=== PATIENT | female | born 1990 | race Caucasian/White ===

== ENCOUNTER 2016-06-09 13:17 | Observation (INO) ==
[2016-06-09 14:25] LABS: Protein/Creatinine Ratio,Urine 0.18 mg/mg (0-0.20)
--- NOTE | 2016-06-09 14:25 | OB/GYN Progress Note ---
Date of Encounter: 06/10/16 Time of Encounter: 14:19 - Assessment and Plan (1) Elevated blood pressure affecting in second trimester, antepartum Status: Acute -Patient is currently asymptomatic. -HTN in previous preganacny. No history of preeclampsia or seizures -Patient drinks 3 20oz bottles of water a day, only. -Differential:preeclampsia vs HTN induced Plan -Preeclampsia workup and check liver enzymes -If negative, patient would like to be discharged home -Consider starting low dose labetalol till f/u with OBGYN -Her mother lives across the street and can watch over her Subjective - Subjective Principal diagnosis: hyptertension, 22w Interval history: 25F, , LMP 01/04/16, c/c headache and R eye blurry vision. This afternoon , patient was taking a shower, stat down and started to have a headache and R eye blurry vision. Headache frontal and temporal, pressure like sensation. Blurry vision described as "stars, and blurry streaks". Lasted 25min. She took her BP and showed 160/90's. She went to the urgent care where they took her BP and was elevated. She was then sent to [place] for evaluation. Currently, patient is asymptomatic and has no complaints. Repeat BP 130's/60's. She has had an issue with HTN during her last , not preeclampsia. Currently, she takes no medication, denies smoking, drinking, drug use. No history of seizures. Her OBGYN is Dr. Shafer. Father is involved, is not moved in. Her mother lives across the street from her and is able to monitor her. If workup is negative, patient does feel comfortable going home. Antepartum ROS: movement normal, no loss of fluid, no vaginal bleeding, no contractions Objective - Vital Signs Vital Signs: Intake and Output 06/08/16 06/09/16 06/09/16 23:59 07:59 15:59 Other: Weight 95.3 kg Patient Weight 06/09/16 23:59 Weight 95.3 kg - Exam FHR: auscultation normal Auscultation: bilateral: normal Abdomen: Present: normal appearance, soft, gravid Uterus: Present: normal, firm Comments: Patellar and achillies DTR +2/4. Visual field intact.
[2016-06-09 14:32] LABS: Aspartate Amino Transferase 11 Units/L (5-34); BUN/Creatinine Ratio 9 (6-26); Lactate Dehydrogenase 116 Units/L (159-327); Uric Acid 3.8 mg/dL (2.6-6.0); eGFR For African Americans > 60 (> 60); eGFR For Non-African Americans > 60 (> 60)
[2016-06-09 14:35] LABS: Alanine Aminotransferase < 6 Units/L (0-55); Blood Urea Nitrogen 5 mg/dL (7-20)
[2016-06-09 14:48] LABS: Basophils % 0.3 %; Eosinophils # 0.1 K/mcL (0.0-0.6); Eosinophils % 0.6 %; Hematocrit 33.7 % (35.3-44.9); Hemoglobin 11.3 g/dL (11.5-15.4); Immature Granulocytes % 0.8 % (0-4); Immature Platelets 8.4 % (1.1-6.1); Lymphocytes # 1.8 K/mcL (0.6-4.6); Lymphocytes % 14.1 %; Mean Corpuscular HGB Conc 33.5 g/dL (31.6-35.5); Mean Corpuscular Hemoglobin 29.4 pg (28.0-33.3); Mean Corpuscular Volume 87.5 fL (83.0-100.0); Mean Platelet Volume 11.4 fL (9.4-12.4); Monocytes # 0.7 K/mcL (0.0-1.3); Monocytes % 5.9 %; Neutrophils # 9.7 K/mcL (1.6-8.9); Platelet Count 268 K/mcL (140-400); Red Blood Count 3.85 M/mcL (3.82-4.97); Red Cell Distribution Width 12.8 % (11.5-14.5); Segmented Neutrophils % 78.3 %
== END 2016-06-09 17:35 | disposition home or self-care (01) ==
LOC: 1NENULAB
PROVIDERS: ADMIT Student in an Organized Health Care Education/Training Program; ATTEND Student in an Organized Health Care Education/Training Program

== ENCOUNTER → 2016-09-16 16:30 | Observation (INO) ==
--- NOTE | 2016-09-16 15:40 | OB/GYN Progress Note ---
Date of Encounter: 09/16/16 Time of Encounter: 15:34 - Assessment and Plan (1) 37 weeks gestation of Current Visit: Yes Status: Acute admitted for observation (2) Fall Current Visit: Yes Status: Acute extended monitoring. Qualifiers: Encounter type: initial encounter Qualified Code(s): W19.XXXA - Unspecified fall, initial encounter (3) NST (non-stress test) reactive Current Visit: Yes Status: Acute baseline 135 bpm moderate variability +15x15 accels no decels noted. Subjective - Subjective Principal diagnosis: fall Interval history: Patient is 25 y/o at 37 weeks gestational age presents to labor and delivery after falling around 1330. Patient states she was bent over putting something in a cabinet and when she stood up she got lightheaded and passed out. Patient states her left side hit a tall trash can and she slid down landing on her bottom. Patient states she did not hit her head or abdomen but when she came to she was shaky. Patient denies contractions, VB or LOF. Patient states until she was on the monitor she did not feel baby move. Patient is scheduled to have 3 hour gtt tomorrow. Blood type is O+. No bruising noted on exam. Antepartum ROS: no loss of fluid, no vaginal bleeding, no contractions Objective - Vital Signs Vital Signs: Intake and Output 09/15/16 09/16/16 09/16/16 23:59 07:59 15:59 Other: Weight 100.5 kg Patient Weight 09/16/16 23:59 Weight 100.5 kg - Exam FHR: auscultation normal, category 1 FHR comments: 135 bpm moderate variability +15x15 accels no decels noted. No contractions. CAt. 1 tracing. Auscultation: bilateral: normal Abdomen: Present: normal appearance, soft, gravid Uterus: Present: normal, firm
--- NOTE | 2016-09-16 16:12 | Discharge Summary ---
Date of Encounter: 09/16/16 Time of Encounter: 16:11 - Discharge Diagnosis (1) 37 weeks gestation of Priority: Primary Status: Acute Comments: discharge home,follow up as scheduled Discussed patient with DR. Wynn. (2) Fall Priority: Secondary Status: Acute Comments: RNST Qualifiers: Encounter type: initial encounter Qualified Code(s): W19.XXXA - Unspecified fall, initial encounter (3) NST (non-stress test) reactive Priority: Secondary Status: Acute Comments: RNST - Discharge Medications Home Medications: Vit Calc,Iron,Folic [ Vitamins] 1 tab PO DAILY 06/09/16 [ History] Allergies/Adverse Reactions: Allergies No Known Allergies Allergy (Verified 06/09/16 12:22) Data Procedures and tests throughout hospitalization: Laboratory Tests 09/16/16 14:56 POC Glucose 85 Labs on day of discharge: Labs from last 24 hours 09/16/16 14:56 POC Glucose 85 Date of admission: 09/16/16 14:26 Primary care physician: PCP NO Discharging clinician: Bárbara Hodge Anticipated date of discharge: 09/16/16 - Patient Status Disposition: Home, Self-Care Condition: Good Functional capacity at discharge: independent ambulation - Discharge Instructions Follow Up With: NO,PCP [Primary Care Provider] - Alfredo Wynn MD [Partnered Physician] - - Diet and Activity Activity: increase activity as tolerated Diet: regular diet Hospital Course [employer] Time Attestation: Total time spent providing and/or coordinating discharge services: Time Spent: Less than 30 minutes Exam - Constitutional General appearance IM: A&O X 3, pleasant, no acute distress - Respiratory Respiratory exam: Present: CTAB - Cardiovascular Cardiovascular exam IM: Present: RRR, +S1, +S2 - VTE Reasons for not Prescribing Prophylaxis: Treatment not Indicated - Low risk for VTE
== END | disposition home or self-care (01) ==
LOC: 1NENULAB
PROVIDERS: ADMIT Obstetrics & Gynecology; ATTEND Obstetrics & Gynecology

== ENCOUNTER 2016-09-29 05:40 | Inpatient (IN) ==
[2016-09-29] MEDS ORDERED: Ringers Solution, Lactated 1,000 ML IVC ONE (05:48)
[2016-09-29] MEDS ORDERED: Famotidine 20 MG/2 ML VIAL IVP PRN (05:48)
[2016-09-29] MEDS ORDERED: Metoclopramide 10 MG/2 ML VIAL IVP ONE (05:48)
[2016-09-29] MEDS ORDERED: Naloxone 0.4 MG/ML INJ IVP PRN (05:48)
[2016-09-29 06:34] LABS: Basophils % 0.3 %; Eosinophils # 0.1 K/mcL (0.0-0.6); Eosinophils % 1.2 %; Hematocrit 32.8 % (35.3-44.9); Hemoglobin 10.7 g/dL (11.5-15.4); Lymphocytes # 1.9 K/mcL (0.6-4.6); Lymphocytes % 16.4 %; Mean Corpuscular HGB Conc 32.6 g/dL (31.6-35.5); Mean Corpuscular Hemoglobin 27.6 pg (28.0-33.3); Mean Corpuscular Volume 84.8 fL (83.0-100.0); Mean Platelet Volume 11.5 fL (9.4-12.4); Monocytes % 8.2 %; Neutrophils # 8.5 K/mcL (1.6-8.9); Platelet Count 220 K/mcL (140-400); Red Blood Count 3.87 M/mcL (3.82-4.97); Red Cell Distribution Width 13.3 % (11.5-14.5); Segmented Neutrophils % 72.9 %
[2016-09-29] MEDS ORDERED: Ringers Solution, Lactated 1,000 ML IVC SCH (07:00)
[2016-09-29] MEDS ORDERED: CeFAZolin Pre 2,000 MG/100 ML 2,000 MG/100 ML BAG IVPB ONE (07:15)
--- NOTE | 2016-09-29 07:49 | OB/GYN History & Physical ---
Date of Encounter: 09/29/16 Time of Encounter: 07:45 Assessment and Plan (1) 39 weeks gestation of Current visit: Yes Status: Acute Pt presents for repeat . Questions answered and consent obtained. Will repeat . History of Present Illness Chief complaint: Here for repeat HPI: Ms. Moreno is a 26 year old female female with h/o x 2 presents at 39 weeks EGA presents for repeat . She has h/o htn but bp's have been good throughout this . On arrival she has no c/o. +GFM, no vb or lof. Past Med Surg Social Fam HX - Past Medical History Source: patient, old records reviewed Medical history: no medical history Psychiatric history: anxiety - Past Surgical History Surgical History: - Social History Smoking Status: Never smoker Smokeless Tobacco Status: No Alcohol use: none Drug use: none - Family History Mother Age: 55 Family Member Ethnicity: Non- Living Status: Still Living Hx Family Cardiac Disorders: No Hx Family Respiratory Disorders: No Hx Family Cancer: No Hx Family GI Disorders: No Hx Family Endocrine Disorder: No Hx Family Neuromuscular Disorders: No Hx Family Neurologic Disorders: No Hx Family HEENT Disorders: No Hx Family Autoimmune Disorders: No Obstetrical History - Pregnancies : 4 Para: 2 (H/O prior c section) Medications and Allergies Vit Calc,Iron,Folic [ Vitamins] 1 tab PO DAILY 06/09/16 [ History] Allergies No Known Allergies Allergy (Verified 09/29/16 07:09) Exam - Vital Signs Vital signs: Initial Vital Signs Temp Pulse Resp BP 98.0 F 117 20 134/78 09/29/16 06:08 09/29/16 06:08 09/29/16 06:08 09/29/16 06:08 - Constitutional Constitutional: well developed, well nourished, no acute distress - HEENT HEENT: EOMI, PERRL - Neck Neck exam: full ROM - Lungs Respiratory exam: CTAB - Cardiovascular Cardiovascular exam: RRR - Abdomen Abdomen: Present: gravid, non tender - Extremities Extremities exam: full ROM Deep Tendon Reflex Grade: 2+ Normal Results Result Diagrams: 09/29/16 06:25 Abnormal lab results WBC 11.7 K/mcL (4.3-11.1) H 09/29/16 06:25 Hgb 10.7 g/dL (11.5-15.4) L 09/29/16 06:25 Hct 32.8 % (35.3-44.9) L 09/29/16 06:25 MCH 27.6 pg (28.0-33.3) L 09/29/16 06:25 All other labs normal.
--- NOTE | 2016-09-29 07:51 | Anesthesia Evaluation PreOp ---
Date of Encounter: 09/29/16 Time of Encounter: 07:48 - Past History Planned Operation: C-S (repeat) tubal Cardiac History: HTN (-induced htn) Pulmonary History: Denies Any Significant HX [employer] History: Denies Any Significant HX Other Medical History: Denies Any Significant HX Anesthesia History: No Prior Anesthetic Complications, Past Anesthesia (C-S x 2 (epidural, spinal); never underwent general anesthesia) Alcohol Use: none Drug use: none Medications and Allergies Vit Calc,Iron,Folic [ Vitamins] 1 tab PO DAILY 06/09/16 [ History] Allergies No Known Allergies Allergy (Verified 09/29/16 07:09) - Meds/Allergy Pre-op Review Medications Reviewed: Yes Allergies Reviewed: Yes Beta Blockers on Current Med List: No Anesthesia Results - Labs 09/29/16 06:25 Anesthesia Exam Last Vital Signs Temp 98.0 F 09/29/16 06:08 Pulse 117 09/29/16 06:08 Resp 20 09/29/16 06:08 BP 134/78 09/29/16 06:08 Weight: 102 kg NPO (# of Hours): >> 8 hrs - HEENT Pupil (Motor): Pupils equal, EOMI Mallampati: I Teeth: Normal Oral Opening: Greater than 3 - [employer] LOC: Oriented [employer] Motor: Normal RUE, Normal LUE, Normal RLE, Normal LLE, Normal Face - Cardiac Rhythm: Regular Murmur: None - Pulmonary Breath Sounds: bilateral Clear Respiratory Effort: Symmetrical Anesthesia Assess/Plan ASA Score: 2 Modified [place] Scale for Level of Consciousness: Cooperative, oriented, and tranquil Anesthetic Plan: Regional (spinal plan A) Monitoring Plan: Standard Monitors Recovery Plan: PACU
[2016-09-29] MEDS ORDERED: Water for inj. (sterile) 10 ML IV ONE (08:51)
[2016-09-29] MEDS ORDERED: EPHEDrine 50 MG/ML VIAL ONE (08:51)
[2016-09-29] MEDS ORDERED: *HR* FentaNYL (PF) 100 MCG/2 ML VIAL ONE (08:51)
[2016-09-29] MEDS ORDERED: *HR* Morphine Sulfate/PF 5 MG/10 ML AMPUL ONE (08:51)
[2016-09-29] MEDS ORDERED: *HR* Oxytocin 10 UNIT/ML VIAL IM ONE ×2 (08:51)
[2016-09-29] MEDS ORDERED: *HR* Phenylephrine 10 MG/ML VIAL ONE (08:51)
[2016-09-29] MEDS ORDERED: Ondansetron 4 MG/2 ML VIAL IVP ONE (09:09)
[2016-09-29] MEDS ORDERED: *HR* Promethazine 25 MG/ML VIAL IVP PRN (09:09)
[2016-09-29] MEDS ORDERED: Acetaminophen IV 1,000 MG/100 ML INFUS..BTL IVPB ONE (09:10)
--- NOTE | 2016-09-29 09:52 | OB/GYN Procedure Note ---
Section - Date of procedure: 09/29/16 Preop diagnosis: desires repeat Post-op diagnosis: same Procedure: section, repeat low transverse Surgeon: Alfredo Wynn Estimated blood loss (cc): 400 Anesthesia Type: Spinal section complications: none Disposition: PACU Specimens: Placenta - (s) A Infant Delivery Date: 09/29/16 Delivery Time: 08:46 Presentation: vertex Position: MARIA ANTONIA Gender: Male Viability: Viable Pounds: 9 Ounces: 2 at 1 minute: 9 at 5 minutes: 10 Specimens collected: cord blood Placenta: spontaneous Cord: 3 umbilical vessels - Narrative Narrative: Patient's a 18-year-old 4 para 2 female presents to labor and delivery at 39 weeks gestation for repeat section. She is aware of operative risks and signed appropriate consent. Description procedure: Patient was taken operating room where spinal anesthesia was administered. She is prepped draped in usual sterile fashion bladder was drained of clear urine with Ashraf catheter. Scalpel was used to make pain still skin incision was sharply taken down the rectus fascia. Fascia incised midline fascial incision was extended bilaterally. Were some adhesions between the uterus immediately as well as bladder flap and uterus medially these were all taken down sharply low-transverse uterine incision was made. Membranes were ruptured clear fluid and was delivered from vertex presentation. Cord was clamped and cut and placenta nurse personnel in attendance. weight was found to be 9 lbs. 2 oz. Apgars 9 at 1 minute and 10 5 minutes. Placenta was delivered manually without difficulty. Uterus was massaged free of all residual tissue. Uterus was closed 0 Vicryl in a running lock stitch second imbricating layer was placed over the first obtain hemostasis. Fascia was closed 0 Vicryl in running manner. Skin edges were approximated with 4-0 Vicryl. All sponge and instruments counts are correct patient was taken recovery in good condition.
[2016-09-29] MEDS ORDERED: *HR* Morphine 2 MG/ML SYRINGE IVP PRN (10:46)
[2016-09-29] MEDS ORDERED: Ondansetron 4 MG/2 ML VIAL IVP PRN ×2 (10:46→11:24)
[2016-09-29] MEDS ORDERED: *HR* HYDROmorphone (PF) 1 MG/ML SYRINGE IVP PRN (10:46)
[2016-09-29] MEDS ORDERED: Oxytocin 20 units/ LR 1000 mL 20 UNIT/1,000 ML BAG IVC ONE (11:11)
[2016-09-29] MEDS ORDERED: Metoclopramide 10 MG/2 ML VIAL IVP PRN (11:24)
[2016-09-29] MEDS ORDERED: Sennosides 8.6 MG TABLET PO PRN (11:24)
[2016-09-29] MEDS ORDERED: Rho Immune Globulin 1,500 UNIT SYRINGE IM ONE (11:24)
[2016-09-29] MEDS ORDERED: Oxytocin 20 units/ LR 1000 mL 20 UNIT/1,000 ML BAG IVC SCH (11:24)
[2016-09-29] MEDS: Simethicone 80 MG TAB.CHEW PO PRN (19:26)
[2016-09-29] MEDS: Ibuprofen 600 MG TABLET PO PRN (19:26)
[2016-09-29] MEDS: *HR* OxyCODONE/APAP 5/325 TABLET PO PRN (19:26)
[2016-09-30] MEDS: *HR* OxyCODONE/APAP 5/325 TABLET PO PRN ×2 (04:07→08:42)
[2016-09-30] MEDS: Ibuprofen 600 MG TABLET PO PRN ×3 (04:08→19:55)
[2016-09-30 04:13] LABS: Basophils % 0.2 %; Eosinophils # 0.1 K/mcL (0.0-0.6); Hematocrit 28.5 % (35.3-44.9); Hemoglobin 9.4 g/dL (11.5-15.4); Immature Granulocytes % 0.6 % (0-4); Lymphocytes % 16.3 %; Mean Corpuscular Hemoglobin 27.7 pg (28.0-33.3); Mean Corpuscular Volume 84.1 fL (83.0-100.0); Mean Platelet Volume 11.5 fL (9.4-12.4); Monocytes # 1.1 K/mcL (0.0-1.3); Monocytes % 9.1 %; Neutrophils # 8.8 K/mcL (1.6-8.9); Platelet Count 210 K/mcL (140-400); Red Blood Count 3.39 M/mcL (3.82-4.97); Red Cell Distribution Width 13.3 % (11.5-14.5); Segmented Neutrophils % 72.8 %
[2016-09-30] MEDS: Prenatal Vit/FA 1 EACH TABLET PO SCH (08:42)
[2016-09-30] MEDS: Simethicone 80 MG TAB.CHEW PO PRN (08:42)
--- NOTE | 2016-09-30 09:52 | OB/GYN Progress Note ---
Date of Encounter: 09/30/16 Time of Encounter: 09:50 - Assessment and Plan (1) Status post repeat low transverse section Current Visit: Yes Status: Acute Meeting s/p milestones appropriately Discharge home tomorrow (2) Breast feeding status of mother Current Visit: Yes Status: Acute Doing well Discharge home tomorrow Subjective - Subjective Principal diagnosis: S/P section day 1 Interval history: Patient doing well s/p RLTC/S with tubal Day 1. Pain well controlled Patient is patient is passing flatus and urinating normally Lochia is light Anticipate discharge home tomorrow. Patient reports: appetite normal, voiding normally, pain well controlled, ambulating normally : doing well, nursing well Objective - Vital Signs Latest vital signs: Vital Signs Temp Pulse Resp BP Pulse Ox 09/30/16 08:55 14 09/30/16 07:50 97.8 F 76 12 103/69 98 09/30/16 04:10 16 09/30/16 03:55 98.3 F 98 16 113/62 99 09/29/16 23:00 98.3 F 87 16 121/83 97 09/29/16 20:49 98.6 F 99 14 138/89 96 09/29/16 16:01 98 F 84 16 133/87 98 09/29/16 14:43 97.7 F 84 16 137/82 09/29/16 13:45 97.7 F 84 16 143/84 95 09/29/16 12:45 98 F 101 16 130/83 96 09/29/16 12:15 98.2 F 92 16 128/80 96 09/29/16 11:45 98.8 F 104 18 139/78 98 Intake and Output 09/29/16 09/30/16 09/30/16 23:59 07:59 15:59 Intake Total 600 / 600 2100 / 2100 Output Total 550 / 550 1000 / 1000 Balance 50 / 50 1100 / 1100 Intake: Oral 600 / 600 2100 / 2100 Output: Catheter 550 / 550 1000 / 1000 Other: Weight 96.887 kg Patient Weight 09/30/16 23:59 Weight 96.887 kg - Exam Lungs: bilateral: normal Chest: Normal S1, Normal S2 Extremities: Present: normal Abdomen: Present: normal appearance, soft. Absent: gravid Incision: Present: normal (Dressing C/D/I) Uterus: Present: normal, firm Fundal Height: 0 (U) - Labs Labs: Laboratory Results - last 24 hr 09/30/16 03:52 WBC 12.1 H RBC 3.39 L Hgb 9.4 L Hct 28.5 L MCV 84.1 MCH 27.7 L MCHC 33.0 RDW 13.3 Plt Count 210 MPV 11.5 Immature Gran % 0.6 Seg Neutrophils % 72.8 Lymphocytes % 16.3 Monocytes % 9.1 Eosinophils % 1.0 Basophils % 0.2 Neutrophils # 8.8 Lymphocytes # 2.0 Monocytes # 1.1 Eosinophils # 0.1 Basophils # 0.0
--- NOTE | 2016-09-30 11:46 | Discharge Summary ---
Date of Encounter: 09/30/16 Time of Encounter: 11:44 - Discharge Diagnosis (1) Status post repeat low transverse section Priority: Primary Status: Acute Comments: Doing well 24 hours post section All milestones met Patient requests discharge home today due to having cancer with chemo treatment (2) Breast feeding status of mother Priority: Primary Status: Acute Comments: going well. - Discharge Medications Prescriptions: Ibuprofen [Motrin] 600 mg PO Q6HR PRN #60 tablet PRN Reason: Cramping OxyCODONE/APAP 5/325 [Percocet 5/325 MG] 1 each PO Q6HR PRN #30 tablet PRN Reason: Moderate pain 4-6 Docusate [Colace] 100 mg PO BID #30 capsule Ferrous Sulfate 325 mg PO DAILY #60 tablet Home Medications: Vit Calc,Iron,Folic [ Vitamins] 1 tab PO DAILY 06/09/16 [ History] Breast Pump [BREAST PUMP] 1 each .ROUTE AD #1 each 09/30/16 [Rx] Docusate [Colace] 100 mg PO BID #30 capsule 09/30/16 [Rx] Ferrous Sulfate 325 mg PO DAILY #60 tablet 09/30/16 [Rx] Ibuprofen [Motrin] 600 mg PO Q6HR PRN #60 tablet 09/30/16 [Rx] OxyCODONE/APAP 5/325 [Percocet 5/325 MG] 1 each PO Q6HR PRN #30 tablet 09/30/16 [Rx] Simethicone [Gas-X] 80 mg PO TID PRN #0 tab.chew 09/30/16 [Rx] Allergies/Adverse Reactions: Allergies No Known Allergies Allergy (Verified 09/29/16 07:09) Data Procedures and tests throughout hospitalization: Laboratory Tests 09/29/16 09/30/16 06:25 03:52 WBC 11.7 H 12.1 H RBC 3.87 3.39 L Hgb 10.7 L 9.4 L Hct 32.8 L 28.5 L MCV 84.8 84.1 MCH 27.6 L 27.7 L MCHC 32.6 33.0 RDW 13.3 13.3 Plt Count 220 210 MPV 11.5 11.5 Immature Gran % 1.0 0.6 Seg Neutrophils % 72.9 72.8 Lymphocytes % 16.4 16.3 Monocytes % 8.2 9.1 Eosinophils % 1.2 1.0 Basophils % 0.3 0.2 Neutrophils # 8.5 8.8 Lymphocytes # 1.9 2.0 Monocytes # 1.0 1.1 Eosinophils # 0.1 0.1 Basophils # 0.0 0.0 Labs on day of discharge: Labs from last 24 hours 09/30/16 03:52 WBC 12.1 H RBC 3.39 L Hgb 9.4 L Hct 28.5 L MCV 84.1 MCH 27.7 L MCHC 33.0 RDW 13.3 Plt Count 210 MPV 11.5 Immature Gran % 0.6 Seg Neutrophils % 72.8 Lymphocytes % 16.3 Monocytes % 9.1 Eosinophils % 1.0 Basophils % 0.2 Neutrophils # 8.8 Lymphocytes # 2.0 Monocytes # 1.1 Eosinophils # 0.1 Basophils # 0.0 Date of admission: 09/29/16 05:40 Primary care physician: PCP VESTA Discharging clinician: Sarah Contreras Anticipated date of discharge: 09/30/16 - Patient Status Disposition: Home, Self-Care Condition: Good Functional capacity at discharge: independent ambulation Overall status at discharge: patient is progressing back to baseline - Discharge Instructions Follow Up With: VESTA,PCP [Primary Care Provider] - Alfredo Wynn MD [Partnered Physician] - - Diet and Activity Activity: increase activity as tolerated Diet: regular diet Hospital Course Reason for admission: section Delivery: section complications: none Discharge diagnosis: IUP at term delivered [place] baby: male Time Attestation: Total time spent providing and/or coordinating discharge services: Time Spent: Less than 30 minutes - VTE Documentation of Mechanical Device: Intermittent pneumatic compression device Exam - Constitutional Vitals: Temp Pulse Resp BP Pulse Ox 97.8 F 76 14 103/69 98 09/30/16 07:50 09/30/16 07:50 09/30/16 08:55 09/30/16 07:50 09/30/16 07:50 - GI/Abdominal Additional comments: See progress note from today
[2016-10-01] MEDS: Simethicone 80 MG TAB.CHEW PO PRN ×2 (00:52→09:23)
[2016-10-01] MEDS: *HR* OxyCODONE/APAP 5/325 TABLET PO PRN ×2 (00:52→06:50)
[2016-10-01 08:00] VITALS: BP 125/87
--- NOTE | 2016-10-01 08:34 | Discharge Summary ---
Date of Encounter: 10/01/16 Time of Encounter: 08:32 - Discharge Diagnosis (1) anemia Priority: Secondary Status: Acute (2) Breast feeding status of mother Priority: Secondary Status: Acute (3) Status post repeat low transverse section Priority: Primary Status: Acute Comments: Patient meeting postop milestones as expected - Discharge Medications Prescriptions: Ibuprofen [Motrin] 600 mg PO Q6HR PRN #60 tablet PRN Reason: Cramping OxyCODONE/APAP 5/325 [Percocet 5/325 MG] 1 each PO Q6HR PRN #30 tablet PRN Reason: Moderate pain 4-6 Breast Pump [BREAST PUMP] 1 each .ROUTE AD #1 each Docusate [Colace] 100 mg PO BID #30 capsule Ferrous Sulfate 325 mg PO DAILY #60 tablet Home Medications: Vit Calc,Iron,Folic [ Vitamins] 1 tab PO DAILY 06/09/16 [ History] Breast Pump [BREAST PUMP] 1 each .ROUTE AD #1 each 09/30/16 [Rx] Docusate [Colace] 100 mg PO BID #30 capsule 09/30/16 [Rx] Ferrous Sulfate 325 mg PO DAILY #60 tablet 09/30/16 [Rx] Ibuprofen [Motrin] 600 mg PO Q6HR PRN #60 tablet 09/30/16 [Rx] OxyCODONE/APAP 5/325 [Percocet 5/325 MG] 1 each PO Q6HR PRN #30 tablet 09/30/16 [Rx] Simethicone [Gas-X] 80 mg PO TID PRN #0 tab.chew 09/30/16 [Rx] Allergies/Adverse Reactions: Allergies No Known Allergies Allergy (Verified 09/29/16 07:09) Data Procedures and tests throughout hospitalization: Laboratory Tests 09/29/16 09/30/16 06:25 03:52 WBC 11.7 H 12.1 H RBC 3.87 3.39 L Hgb 10.7 L 9.4 L Hct 32.8 L 28.5 L MCV 84.8 84.1 MCH 27.6 L 27.7 L MCHC 32.6 33.0 RDW 13.3 13.3 Plt Count 220 210 MPV 11.5 11.5 Immature Gran % 1.0 0.6 Seg Neutrophils % 72.9 72.8 Lymphocytes % 16.4 16.3 Monocytes % 8.2 9.1 Eosinophils % 1.2 1.0 Basophils % 0.3 0.2 Neutrophils # 8.5 8.8 Lymphocytes # 1.9 2.0 Monocytes # 1.0 1.1 Eosinophils # 0.1 0.1 Basophils # 0.0 0.0 Date of admission: 09/29/16 05:40 Primary care physician: PCP NO Discharging clinician: Joyce Youssef Anticipated date of discharge: 10/01/16 - Patient Status Disposition: Home, Self-Care Functional capacity at discharge: independent ambulation Overall status at discharge: patient is progressing back to baseline - Discharge Instructions Follow Up With: NO,PCP [Primary Care Provider] - Alfredo Wynn MD [Partnered Physician] - Additional Instructions: Perineal Care: Always wipe front to back Change your pad frequently Use your adrienne bottle with warm water and spray front to back Do not douche, use tampons, have sexual intercourse or put anything in your vagina for 4-6 weeks after delivery Bleeding: Vaginal bleeding can last up to 6 weeks Your menstrual period may return as early as 6 weeks after you are discharged from the hospital Elle/Stitches Care: Vaginal Delivery Vaginal stitches will dissolve within 4-6 weeks Follow perineal care instructions Care Stitches will dissolve on their own If you have elle, they will need to be removed in the doctors office within 5-7 days. You may shower with stitches or elle Drip plan or soapy water over the incision to clean. Pat dry gently with a clean towel. Make sure you completely dry under the skin folds DO NOT USE powders, lotions, rubbing alcohol or hydrogen peroxide on or around your incision. This will slow your wound healing It is normal to have soreness, burning, tingling, itchiness and/or numbness as your incision heals Activity: Rest frequently Do not lift anything heavier than a gallon of milk, up to 10-15 pounds No driving for 1-2 weeks for Vaginal delivery No driving for 2-4 weeks for delivery Take stairs slowly, one at a time Gradually increase your daily activity until you are back to your normal routine Do not exercise until you have had your follow-up appointment Bathing: Take a shower daily Do not take a tub bath for the first 4 weeks Diet: Drink plenty of water and fruit juices Eat a well-balanced diet with foods high in fiber such as fruits and vegetables Depression: Your hormones have a major impact on your feelings and emotions. Hormone imbalance may cause changes in your mood, creating unfamiliar thoughts and actions. Support is available to help you understand and cope with these feelings and mood changes. If you answer yes to any of the following questions, please call your health care provider: Are you having trouble sleeping? Are you feeling isolated? Have you lost your appetite? Are you having thoughts of hurting yourself or others? WARNING SIGNS: Heavy bleeding from the vagina (blood is bright red and soaks a sanitary pad in an hour or less.) Passing a blood clot larger than your fist Discharge from the vagina that has a bad odor Temperature over 100.4 F, or if you feel cold and have chills An episiotomy site that is warm, swollen or oozing. Use a mirror if needed Urination (pee) that is painful, very red and swollen or leaking fluid An incision that is painful, very red and swollen and leaking fluid An incision that has come open Breasts that are painful or full with flu like symptoms Redness, warmth or swelling in the calf of your leg Trouble breathing, dizziness, visual disturbance or faintness *Notify your health care provider immediately or go to the nearest Emergency Room if you experience any of the above signs.* To contact the nurses station 24 hours a day, For non-urgent, routine questions, please call the office at - Diet and Activity Activity: increase activity as tolerated Diet: advance to your usual diet Hospital Course Reason for admission: section Delivery: section Episiotomy: none Laceration: none complications: none Discharge diagnosis: IUP at term delivered baby: male Hospital course: Repeat delivery - uncomplicated post-op course. Time Attestation: Total time spent providing and/or coordinating discharge services: Time Spent: Less than 30 minutes - VTE Documentation of Mechanical Device: Intermittent pneumatic compression device Exam - Constitutional Vitals: Temp Pulse Resp BP Pulse Ox 98.6 F 99 12 125/87 96 10/01/16 07:55 10/01/16 07:55 10/01/16 07:55 10/01/16 07:55 10/01/16 07:55 General appearance IM: cooperative, A&O X 3, no acute distress, answers questions appropriately - Respiratory Respiratory exam: Present: CTAB - Cardiovascular Cardiovascular exam IM: Present: RRR, +S1, +S2 - GI/Abdominal GI/Abdominal exam IM: normal bowel sounds, soft Incision: normal, dry, intact Additional comments: Wound clean, dry, well-approximated with steri-strips. Abdominal binder in place - External exam: normal external exam Uterine Tone: Firm Uterus Position: 2 Fingers Below Umbilicus - Extremities Exam Extremities exam IM: Present: full ROM, normal capillary refill, pedal edema Additional comments: 1+ pedal edema - Neurological Exam Neurological exam: alert, normal gait, oriented X3 - Psychiatric Additional comments: Patient reports good mood.
[2016-10-01] MEDS: Prenatal Vit/FA 1 EACH TABLET PO SCH (09:23)
[2016-10-01] MEDS: Ibuprofen 600 MG TABLET PO PRN (09:25)
== END 2016-10-01 11:32 | disposition home or self-care (01) | DRG 540 ==
LOC: 1NENULAB 05:40 → 1NENUOBS 11:30
PROVIDERS: ADMIT Obstetrics & Gynecology; ATTEND Obstetrics & Gynecology

== ENCOUNTER 2018-09-09 13:32 | Inpatient (IN) ==
[2018-09-09] MEDS ORDERED: *HR* Labetalol 20 MG/4 ML SYRINGE IVP ONE (14:22)
[2018-09-09 14:45] LABS: Creatinine,Urine 105 mg/dL; Protein/Creatinine Ratio,Urine 0.18 mg/mg (0.00-0.20)
[2018-09-09 14:49] LABS: Basophils % 0.3 %; Eosinophils # 0.1 K/mcL (0.0-0.6); Eosinophils % 0.6 %; Hematocrit 36.1 % (35.3-44.9); Hemoglobin 11.2 g/dL (11.5-15.4); Immature Granulocytes % 0.4 % (0-4); Lymphocytes # 1.6 K/mcL (0.6-4.6); Lymphocytes % 13.5 %; Mean Corpuscular Hemoglobin 24.3 pg (28.0-33.3); Mean Corpuscular Volume 78.5 fL (83.0-100.0); Mean Platelet Volume 12.1 fL (9.4-12.4); Monocytes # 0.7 K/mcL (0.0-1.3); Monocytes % 6.2 %; Neutrophils # 9.4 K/mcL (1.6-8.9); Platelet Count 229 K/mcL (140-400); Red Cell Distribution Width 15.7 % (11.5-14.5)
[2018-09-09 14:56] LABS: Alanine Aminotransferase 9 Units/L (7-52); Aspartate Amino Transferase 11 Units/L (13-39); BUN/Creatinine Ratio 9 (6-26); Blood Urea Nitrogen 4 mg/dL (6-20); Lactate Dehydrogenase 159 Units/L (140-271); Uric Acid 5.2 mg/dL (2.3-7.6); eGFR For Non-African Americans > 60 (> 60)
[2018-09-09 15:03] LABS: Amphetamine Screen,Urine Negative ng/mL (Cutoff=1000); Barbiturate Screen,Urine Negative ng/mL (Cutoff=200); Benzodiazepines Screen,Urine Negative ng/mL (Cutoff=200); Cannabinoid Screen,Urine Negative ng/mL (Cutoff = 50); Cocaine Screen,Urine Negative ng/mL (Cutoff= 300); Opiate Screen,Urine Negative ng/mL (Cutoff=300); Phencyclidine Screen,Urine Negative ng/mL (Cutoff=25)
[2018-09-09 15:35] LABS: Hepatitis B Surface Antigen Nonreactive (Nonreactive)
[2018-09-09] MEDS ORDERED: Famotidine 20 MG/2 ML VIAL IVP ONE (16:01)
[2018-09-09] MEDS ORDERED: Oxytocin 20 units/ LR 1000 mL 20 UNIT/1,000 ML BAG IVC ONE (16:01)
[2018-09-09] MEDS ORDERED: CeFAZolin Premix DUPLEX 2,000 MG/50 ML BAG IVPB ONE (16:01)
[2018-09-09] MEDS ORDERED: Metoclopramide 10 MG/2 ML VIAL IVP ONE (16:01)
[2018-09-09] MEDS ORDERED: Ringers Solution, Lactated 1,000 ML IVC ONE (16:01)
[2018-09-09 16:04] LABS: HIV-1&2 Antibody & p24 Ag Nonreactive (Nonreactive)
[2018-09-09] MEDS ORDERED: Ringers Solution, Lactated 1,000 ML IVC SCH (16:15)
[2018-09-09] MEDS ORDERED: Oxytocin 20 units/ LR 1000 mL 20 UNIT/1,000 ML BAG IVC SCH (16:15)
--- NOTE | 2018-09-09 16:22 | OB/GYN History & Physical ---
Date of Encounter: 09/09/18 Time of Encounter: 16:10 Assessment and Plan (1) Elevated blood pressure affecting in second trimester, antepartum Current visit: Yes Status: Acute 27yo at 38+4wks GA who presents to L&D with NO PNC, states to have increased abdominal pain 1. Gestational HTN - 170/110s on presentation - given 2 doses of IV labetalol 10mg, now normotensive - will continue to monitor q4hr - PreE labs ordered and negative - denies si/sx of PreE - meets criteria for delivery 2. Oligohydramnios - TAUS performed SHIVA: 3cm - meets criteria for delivery at term - increased risk of stillborn 3. NO PNC - patient without any PNC - first US performed today, oligohydramnios - posterior, GRADE III placenta - EFW consistent with >90th%ile - consent signed for repeat CS x 4 - no concern for accreta at this time - last meal at 1000, plan for delivery at 1800 - social work consultation placed: UDS Dispo: Patient without ANY PNC, seen today with abdominal pain. Repeat CS x4. Posterior placenta. Will have 2U pRBC on hold. Type and crossed. Gestational HTN and oligohydramnios both meeting criteria for delivery TODAY. MD MERCEDES (2) Status post repeat low transverse section Current visit: Yes Status: Acute History of Present Illness Chief complaint: repeat CS HPI: Ms. Moreno is a 27 year old female at 38+4wks GA based on TVUS today CHALO: 09/19/2018. Patient with hx of 3 prior CS at term. Last performed by Dr. Wynn in 2017. Patient with hx of 1 SAB as well. NO PNC THIS . Does state to have hx of PreEclampsia in prior pregnancies. Again, patient never had PNC. This was her first US today. Dating her and showing her with a male . SHIVA 3cm. She states that she has attempted to get PNC starting in July but was unable to find a provider to take her so late in . Also, stated she couldn't get PNC earlier because of her lack of insurance. Despite this being her 4th - and fully aware [place] woman, this prevented her from having care. Social work will be contacted regardless as the patient was taking (knowingly) IBUprofen throughout this . Furthermore, we discussed contraception following this. Ideally we would prefer to do a tubal ligation (both the MD team as well as the patient), however due to her lack of insurance, we cannot do this. Instead, the patient is very aware that a Mirena IUD or Nexplanon would be the most ideal for her. O positive, HGB normal. UDS negative. Past Med Surg Social Fam HX - Past Medical History Medical history: no medical history Psychiatric history: anxiety - Past Surgical History Surgical History: - Social History Smoking Status: Former smoker Smokeless Tobacco Status: No Alcohol use: none Drug use: none - Family History Mother Family Member Ethnicity: Non- Living Status: Still Living Hx Family Cardiac Disorders: No Hx Family Respiratory Disorders: No Hx Family Cancer: No Hx Family GI Disorders: No Hx Family Endocrine Disorder: No Hx Family Neuromuscular Disorders: No Hx Family Neurologic Disorders: No Hx Family HEENT Disorders: No Hx Family Autoimmune Disorders: No Obstetrical History - Pregnancies : 5 Para: 3 Term: 3 : 0 Ab's: 1 Livin - History/Complications History/Complications: Hx of 3 prior CS at term 1 SAB Medications and Allergies Vit Calc,Iron,Folic [ Vitamins] 1 tab PO DAILY 06/09/16 [History] Ibuprofen [Motrin] 800 mg PO Q8H PRN 09/09/18 [History] Allergy/AdvReac Type Severity Reaction Status Date / Time No Known Allergies Allergy Verified 11/19/16 12:30 Exam - Constitutional Constitutional: well developed, well nourished, no acute distress, average body habitus - HEENT HEENT: Normocephaly, Mucus Membranes Moist - Lungs Respiratory exam: CTAB - Cardiovascular Cardiovascular exam: RRR - Abdomen Abdomen: Present: bowel sounds normal - Uterus Uterus exam: Present: normal size, normal contour - Anus/Rectum Anus/Rectum: Present: normal perianal skin, heme negative Results Result Diagrams: 09/09/18 14:26 09/09/18 14:00 Abnormal lab results WBC 11.9 K/mcL (4.3-11.1) H 09/09/18 14:26 Hgb 11.2 g/dL (11.5-15.4) L 09/09/18 14:26 MCV 78.5 fL (83.0-100.0) L 09/09/18 14:26 MCH 24.3 pg (28.0-33.3) L 09/09/18 14:26 MCHC 31.0 g/dL (31.6-35.5) L 09/09/18 14:26 RDW 15.7 % (11.5-14.5) H 09/09/18 14:26 9.4 K/mcL (1.6-8.9) H 09/09/18 14:26 BUN 4 mg/dL (6-20) L 09/09/18 14:00 0.47 mg/dL (0.60-1.20) L 09/09/18 14:00 AST 11 Units/L (13-39) L 09/09/18 14:00 19 mg/dL (1-14) H 09/09/18 14:26 All other labs normal. - VTE Reasons for not Prescribing Prophylaxis: Treatment not Indicated - Low risk for VTE
--- NOTE | 2018-09-09 16:54 | OB/GYN Procedure Note ---
Section - Date of procedure: 09/09/18 Preop diagnosis: desires repeat Post-op diagnosis: same Procedure: section, repeat low transverse Surgeon: Sarah Dickson Was there an catering assistant present: No Anesthesia Type: Spinal section complications: none Disposition: L&D Recovery Room Specimens: Placenta - Infant (s) A Delivery Date: 09/09/18 Delivery Time: 19:00 Gender: Male Viability: Viable Pounds: 8 Ounces: 7 at 1 minute: 8 at 5 minutes: 9 Specimens collected: cord blood Placenta: spontaneous - Narrative Narrative: OPERATIVE REPORT: PATIENT NAME: VU FRANCOIS : 1990 DATE OF SURGERY: 09/09/2018 DIAGNOSIS: 1. TERM WITH NO CARE 2. HX OF 3 PRIOR LOW TRANSVERSE DELIVERIES 3. HX OF 1 SPONTANEOUS , 1ST TRIMESTER 4. GESTATIONAL HYPERTENSION 5. OLIGOHYDRAMNIOS POSTOPERATIVE DIAGNOSIS: 1. TERM WITH NO CARE 2. HX OF 3 PRIOR LOW TRANSVERSE DELIVERIES 3. HX OF 1 SPONTANEOUS , 1ST TRIMESTER 4. GESTATIONAL HYPERTENSION 5. OLIGOHYDRAMNIOS 6. UTERINE WINDOW 7. DENSE RECTOFASCIAL, UTERORECTAL ADHESIONS EBL: 450 mL IVF: 1500 mL UOP: 100 mL SPECIMEN: 1. Cord blood 2. Placenta PROCEDURE: Patient was consented for the aforementioned procedure. She is aware of the risk(s) for repeat CS including but not limited to bleeding, infection, transfusion, maternal and morbidity and mortality. All question(S) and concerns were discussed prior to taking the patient to the operating room. Anesthesia was contacted and consulted as the patient opted for spinal anesthesia. The patient was taken to the operating room, where she was prepped and draped in the usual sterile fashion. Anesthesia was found to be adequate and time out was performed. Upon the patient lying flat, she SROM'd thick meconium. A pfannenstiel skin incision was performed and taken down to the level of the fascia. We scored at the midline, and then extended the fascial incision bilaterally and equally on either side. All rectofascial adhesion(S) were taken down prior to proceeding with the procedure. We then the rectus abdominis muscles at the midline, and bluntly entered the peritoneum. With equal and opposite force, we the rectus abdominis and took down all utero-rectal adhesion(S) in effort to appropriately assess the lower uterine segment. OF NOTE: WE DID APPRECIATE A UTERINE WINDOW SUPERIOR TO INTENDED SITE OF HYSTEROTOMY. Bladder blade was placed and bladder reflection was identified. We attempted to make a bladder flap and then replace the bladder blade for better visualization. Once cleared, we then performed a low transverse hysterotomy (uterine) incision. Once entered, we extended the incision upward, in the usual fashion, then upward and downward. We then brought the head to the level of the hysterotomy, fluid was appreciated showing thick meconium fluid. With adequate fundal pressure, we delivered infant. Baby was vigorous . Cord delay not performed. Cord was then clamped and cut, as the baby was handed off to nursary or evaluation under the warmer. Cord blood was taken. We then attempted to remove the placenta spontaneous with minimal uterine massage. Placenta delivered with appropriate but gentle traction. Placenta was sent to pathology. Using ringed forceps, we placed on at either angle, and another at the lower uterine segment. We closed the hysterotomy using 0-vicryl in a running, locked fashion. Hemostasis was appreciated. We then returned the uterus back into the abdomen and confirmed hemostasis. Bilateral gutters where evaluated and cleared of uterine debris and clots. Using Stratafix suture, we closed the fascia in usual running, unlocked fashion. We then closed skin using 4-0 monocryl in the subcuticular, running fashion. We then used sterri strips to cover the incision. Telfa, tegederm was used to cover pfannenstiel. All counts were correct x3. Sign out was performed. I was present for the entirety of the procedure. OF NOTE: THE SIGNIFICANT ADHESIONS APPRECIATED THROUGHOUT THIS CASE AT EVERY PLANAR LEVEL WAS SEVERE. THIS PATIENT WILL LIKELY REQUIRE A HYSTERECTOMY SHOULD SHE BECOME AGAIN. WE DISCUSSED THE GRAVITY OF FINDINGS, AND THAT PERMANENT OR SEMI-PERMANENT MEASURES SHOULD BE TAKEN TO ENSURE SHE IS UNABLE TO BECOME AGAIN. MD Sarah DICKSONMARY [facility] MD
[2018-09-09] MEDS ORDERED: EPHEDrine 50 MG/ML VIAL ONE (17:58)
[2018-09-09] MEDS ORDERED: *HR* Morphine Sulfate/PF 10 MG/10 ML AMPUL ONE (17:58)
[2018-09-09] MEDS ORDERED: *HR* FentaNYL (PF) 100 MCG/2 ML VIAL ONE (17:58)
[2018-09-09] MEDS ORDERED: *HR* Oxytocin 10 UNIT/ML VIAL IM ONE ×2 (18:00→19:36)
[2018-09-09] MEDS ORDERED: Lidocaine -MPF 2% 5 ML VIAL ONE (18:00)
[2018-09-09] MEDS ORDERED: *HR* Phenylephrine 10 MG/ML VIAL ONE (18:50)
[2018-09-09] MEDS ORDERED: Dexamethasone 4 MG/ML VIAL ONE (18:54)
[2018-09-09] MEDS ORDERED: Ondansetron 4 MG/2 ML VIAL ONE (18:54)
[2018-09-09] MEDS ORDERED: Ketorolac 30 MG/ML VIAL ONE (18:54)
--- NOTE | 2018-09-09 19:12 | Anesthesia Evaluation PreOp ---
Date of Encounter: 09/09/18 Time of Encounter: 18:00 - Past History Planned Operation: RCS Cardiac History: Denies any Significant Hx Pulmonary History: Denies Any Significant HX VEHICLE BODY BUILDER History: Denies Any Significant HX Other Medical History: Denies Any Significant HX Anesthesia History: No Prior Anesthetic Complications : Yes Test: Positive Alcohol Use: none Drug use: none Medications and Allergies Vit Calc,Iron,Folic [ Vitamins] 1 tab PO DAILY 06/09/16 [History] Ibuprofen [Motrin] 800 mg PO Q8H PRN 09/09/18 [History] Allergy/AdvReac Type Severity Reaction Status Date / Time No Known Allergies Allergy Verified 11/19/16 12:30 - Meds/Allergy Pre-op Review Medications Reviewed: Yes Allergies Reviewed: Yes Beta Blockers on Current Med List: Yes If Beta Blockers taken, Date/Time (Last Dose taken): 09/09 1799 Anesthesia Results - Labs 09/09/18 14:26 09/09/18 14:00 Anesthesia Exam - HEENT Pupil (Motor): Pupils equal Mallampati: II Teeth: Normal Oral Opening: Greater than 3 - VEHICLE BODY BUILDER LOC: Oriented VEHICLE BODY BUILDER Motor: Normal RUE, Normal LUE, Normal RLE, Normal LLE, Normal Face VEHICLE BODY BUILDER Sensory: Normal: RUE, LUE, RLE, LLE, Face - Cardiac Rhythm: Regular Murmur: None JVD: No Carotid Bruit: No - Pulmonary Breath Sounds: bilateral Clear Respiratory Effort: Symmetrical Anesthesia Assess/Plan ASA Score: 2 Level of consciousness: Cooperative Anesthetic Plan: Spinal Autologous Blood: Yes Monitoring Plan: Standard Monitors
--- NOTE | 2018-09-09 19:14 | Anesthesia Procedures ---
Date of Encounter: 09/09/18 Time of Encounter: 18:40 Procedures: Anesthesia - Epidural/Spinal Patient ID/Chart reviewed: Yes Patient examined: Yes OB Eval: Gestational age: 38.3 OB Eval: : 5 OB Eval: Hx Para: 3 OB Eval: Contractions: Non-stressed pattern Consent Obtained: Yes Supplemental Oxygen: None/Room Air Site Prep: Aseptic Technique, Sterile prep and drape, Povidone-Iodine 1% Patient position: upright Amount of Local Anesthetic used: 3 Interspace Used: L4-L5 Loss of Resistance (ADOLFO): No Blood: No CSF: Yes Paresthesia: Yes Spinal Needle Gauge: 24 Spinal Dose: bupivicaine 0.75% [id number] Vitals + FHT's: stable throughout see nursing notes
[2018-09-09 19:39] LABS: Varicella Zoster IgG Antibody Positive
[2018-09-09 19:40] LABS: Rubella IgG Antibody POSITIVE (POSITIVE)
[2018-09-09 22:30] LABS: Hematocrit 31.7 % (35.3-44.9); Hemoglobin 9.8 g/dL (11.5-15.4); Mean Corpuscular HGB Conc 30.9 g/dL (31.6-35.5); Mean Corpuscular Hemoglobin 24.4 pg (28.0-33.3); Mean Corpuscular Volume 79.1 fL (83.0-100.0); Mean Platelet Volume 11.7 fL (9.4-12.4); Platelet Count 218 K/mcL (140-400); Red Blood Count 4.01 M/mcL (3.82-4.97); Red Cell Distribution Width 15.5 % (11.5-14.5)
[2018-09-10] MEDS ORDERED: Metoclopramide 10 MG/2 ML VIAL IVP PRN (01:38)
[2018-09-10] MEDS ORDERED: Sennosides 8.6 MG TABLET PO PRN (01:38)
[2018-09-10] MEDS ORDERED: *HR* OxyCODONE Immed Rel 5 MG TABLET PO PRN (01:38)
[2018-09-10] MEDS ORDERED: Rho Immune Globulin 1,500 UNIT SYRINGE IM ONE (01:38)
[2018-09-10] MEDS ORDERED: Ondansetron 4 MG/2 ML VIAL IVP PRN (01:38)
[2018-09-10] MEDS ORDERED: *HR* HYDROmorphone 2 MG/ML SYRINGE IVP PRN (01:41)
[2018-09-10] MEDS ORDERED: Oxytocin 20 units/ LR 1000 mL 20 UNIT/1,000 ML BAG IVC SCH ×2 (01:45)
[2018-09-10] MEDS: *HR* OxyCODONE/APAP 5/325 TABLET PO PRN ×4 (02:31→20:23)
[2018-09-10] MEDS: Ibuprofen 600 MG TABLET PO PRN ×4 (02:31→23:51)
[2018-09-10 04:52] LABS: Basophils % 0.2 %; Eosinophils % 0.1 %; Hematocrit 29.7 % (35.3-44.9); Hemoglobin 9.1 g/dL (11.5-15.4); Immature Granulocytes % 0.4 % (0-4); Lymphocytes # 1.3 K/mcL (0.6-4.6); Lymphocytes % 7.8 %; Mean Corpuscular HGB Conc 30.6 g/dL (31.6-35.5); Mean Corpuscular Hemoglobin 24.1 pg (28.0-33.3); Mean Corpuscular Volume 78.8 fL (83.0-100.0); Mean Platelet Volume 12.5 fL (9.4-12.4); Monocytes % 5.7 %; Neutrophils # 14.4 K/mcL (1.6-8.9); Platelet Count 252 K/mcL (140-400); Red Blood Count 3.77 M/mcL (3.82-4.97); Red Cell Distribution Width 15.6 % (11.5-14.5); Segmented Neutrophils % 85.8 %
[2018-09-10] MEDS: Prenatal Vit/FA 1 EACH TABLET PO SCH (07:42)
--- NOTE | 2018-09-10 08:51 | OB/GYN Progress Note ---
Date of Encounter: 09/10/18 Time of Encounter: 08:49 - Assessment and Plan (1) Status post repeat low transverse section Current Visit: Yes Status: Acute Meeting Day 1 milestones Anticipate discharge home POD 2 or 3 Discussed risks of additional pregnancies to her life at this time; she declines contraception at this time. POC per consult with Dr Bustamante Subjective - Subjective Principal diagnosis: S/P Repeat unscheduled C/S Day 1 Interval history: S/P Unscheduled repeat C/S Day 1. Pain is well controlled Lochia light Voiding without difficulty Tolerating regular diet and passing flatus breast feeding Anticipate discharge home tomorrow Patient reports: appetite normal, voiding normally, pain well controlled, ambu lating normally : doing well, nursing well Objective - Vital Signs Latest vital signs: Vital Signs Temp Pulse Resp BP Pulse Ox 09/10/18 07:58 98.1 F 100 16 127/88 98 09/10/18 04:17 98 146/92 09/10/18 03:38 97.8 F 112 14 141/95 97 09/10/18 01:20 98.2 F 98 16 126/88 97 09/10/18 00:24 98.8 F 105 16 130/93 96 09/09/18 23:42 98.5 F 103 16 150/89 97 09/09/18 22:50 98.8 F 110 17 137/93 94 09/09/18 22:20 98.8 F 97 16 143/98 96 Intake and Output 09/09/18 09/10/18 09/10/18 23:59 07:59 15:59 Intake Total 360 / 360 Output Total 250 / 250 150 / 150 Balance -250 / -250 210 / 210 Intake: Oral 360 / 360 Output: Catheter 250 / 250 150 / 150 Other: Stool Characteristics Normal for Patient Normal for Patient Weight 86.636 kg Patient Weight 09/10/18 23:59 Weight 86.636 kg - Exam Lungs: bilateral: normal Chest: Normal S1, Normal S2 Extremities: Present: normal Abdomen: Present: normal appearance, soft, gravid Incision: Present: normal (Dressing C/D/I) Uterus: Present: normal, firm Fundal Height: 0 - Labs Labs: Laboratory Results - last 24 hr 09/09/18 09/09/18 09/09/18 14:00 14:00 14:00 WBC RBC Hgb Hct MCV MCH MCHC RDW Plt Count MPV Immature Gran % Seg Neutrophils % Lymphocytes % Monocytes % Eosinophils % Basophils % Neutrophils # Lymphocytes # Monocytes # Eosinophils # Basophils # BUN 4 L Creatinine 0.47 L Est GFR ( Amer) > 60 Est GFR (Non-Af Amer) > 60 BUN/Creatinine Ratio 9 Uric Acid 5.2 AST 11 L ALT 9 Lactate Dehydrogenase 159 Urine Creatinine Protein/Creatinin Ratio Urine Total Protein Urine Opiates Screen Ur Barbiturates Screen Ur Phencyclidine Scrn Ur Amphetamines Screen U Benzodiazepines Scrn Urine Cocaine Screen U Marijuana (THC) Screen Ur Drug Screen Interp T.pallidum Ab Interpret Negative Hep Bs Antigen Nonreactive HIV Ag/Ab Combo Qual Nonreactive Rubella IgG Antibody POSITIVE VZV IgG Antibody Positive Blood Type 09/09/18 09/09/18 09/09/18 14:00 14:26 14:26 WBC 11.9 H RBC 4.60 Hgb 11.2 L Hct 36.1 MCV 78.5 L MCH 24.3 L MCHC 31.0 L RDW 15.7 H Plt Count 229 MPV 12.1 Immature Gran % 0.4 Seg Neutrophils % 79.0 Lymphocytes % 13.5 Monocytes % 6.2 Eosinophils % 0.6 Basophils % 0.3 Neutrophils # 9.4 H Lymphocytes # 1.6 Monocytes # 0.7 Eosinophils # 0.1 Basophils # 0.0 BUN Creatinine Est GFR ( Amer) Est GFR (Non-Af Amer) BUN/Creatinine Ratio Uric Acid AST ALT Lactate Dehydrogenase Urine Creatinine 105 Protein/Creatinin Ratio 0.18 Urine Total Protein 19 H Urine Opiates Screen Negative Ur Barbiturates Screen Negative Ur Phencyclidine Scrn Negative Ur Amphetamines Screen Negative U Benzodiazepines Scrn Negative Urine Cocaine Screen Negative U Marijuana (THC) Screen Negative Ur Drug Screen Interp See Below T.pallidum Ab Interpret Hep Bs Antigen HIV Ag/Ab Combo Qual Rubella IgG Antibody VZV IgG Antibody Blood Type O POSITIVE 09/09/18 09/10/18 22:07 04:16 WBC 18.8 H D 16.8 H RBC 4.01 3.77 L Hgb 9.8 L 9.1 L Hct 31.7 L 29.7 L MCV 79.1 L 78.8 L MCH 24.4 L 24.1 L MCHC 30.9 L 30.6 L RDW 15.5 H 15.6 H Plt Count 218 252 MPV 11.7 12.5 H Immature Gran % 0.4 Seg Neutrophils % 85.8 Lymphocytes % 7.8 Monocytes % 5.7 Eosinophils % 0.1 Basophils % 0.2 Neutrophils # 14.4 H Lymphocytes # 1.3 Monocytes # 1.0 Eosinophils # 0.0 Basophils # 0.0 BUN Creatinine Est GFR ( Amer) Est GFR (Non-Af Amer) BUN/Creatinine Ratio Uric Acid AST ALT Lactate Dehydrogenase Urine Creatinine Protein/Creatinin Ratio Urine Total Protein Urine Opiates Screen Ur Barbiturates Screen Ur Phencyclidine Scrn Ur Amphetamines Screen U Benzodiazepines Scrn Urine Cocaine Screen U Marijuana (THC) Screen Ur Drug Screen Interp T.pallidum Ab Interpret Hep Bs Antigen HIV Ag/Ab Combo Qual Rubella IgG Antibody VZV IgG Antibody Blood Type
[2018-09-10] MEDS: Simethicone 80 MG TAB.CHEW PO PRN ×2 (12:45→20:23)
[2018-09-11] MEDS: *HR* OxyCODONE/APAP 5/325 TABLET PO PRN ×4 (06:00→23:03)
[2018-09-11] MEDS: Ibuprofen 600 MG TABLET PO PRN ×3 (06:00→18:01)
[2018-09-11 07:11] LABS: Basophils % 0.3 %; Eosinophils # 0.1 K/mcL (0.0-0.6); Eosinophils % 1.2 %; Hemoglobin 8.4 g/dL (11.5-15.4); Immature Granulocytes % 0.6 % (0-4); Lymphocytes # 2.1 K/mcL (0.6-4.6); Lymphocytes % 19.8 %; Mean Corpuscular HGB Conc 31.1 g/dL (31.6-35.5); Mean Corpuscular Hemoglobin 24.7 pg (28.0-33.3); Mean Corpuscular Volume 79.4 fL (83.0-100.0); Mean Platelet Volume 11.8 fL (9.4-12.4); Monocytes # 0.6 K/mcL (0.0-1.3); Monocytes % 6.2 %; Neutrophils # 7.5 K/mcL (1.6-8.9); Platelet Count 211 K/mcL (140-400); Red Cell Distribution Width 15.7 % (11.5-14.5); Segmented Neutrophils % 71.9 %
[2018-09-11] MEDS: Prenatal Vit/FA 1 EACH TABLET PO SCH (07:23)
[2018-09-11 07:29] LABS: Alanine Aminotransferase 11 Units/L (7-52); Aspartate Amino Transferase 18 Units/L (13-39); BUN/Creatinine Ratio 14 (6-26); Blood Urea Nitrogen 7 mg/dL (6-20); Lactate Dehydrogenase 197 Units/L (140-271); Uric Acid 4.6 mg/dL (2.3-7.6); eGFR For Non-African Americans > 60 (> 60)
--- NOTE | 2018-09-11 09:16 | OB/GYN Progress Note ---
Date of Encounter: 09/11/18 Time of Encounter: 09:14 - Assessment and Plan (1) Status post repeat low transverse section Current Visit: Yes Status: Acute Continue routine /post op care (2) Breast feeding status of mother Current Visit: No Status: Acute support (3) anemia Current Visit: No Status: Acute increase ferrous sulfate to BID Subjective - Subjective Principal diagnosis: /postop day 2 Interval history: Patient reports pain is well controlled. Patient denies headache, visual disturbances or epigastric pain. Discussed lab work and vital signs with Dr. Meza. Dr. Meza wanted a repeat CBC at 1400 and to increase labetalol to 200mg po BID. Plan to discharge home tomorrow. Patient reports: appetite normal, voiding normally, pain well controlled, ambulating normally : doing well, nursing well Objective - Vital Signs Latest vital signs: Vital Signs Temp Pulse Resp BP Pulse Ox 09/11/18 09:12 125/83 09/11/18 07:21 97.7 F 90 18 150/109 98 09/11/18 05:33 98.0 F 86 16 134/100 97 09/10/18 23:52 98.3 F 88 16 146/92 98 09/10/18 22:30 98 156/98 09/10/18 20:23 98.7 F 99 16 152/100 97 09/10/18 15:55 98.1 F 98 16 138/91 09/10/18 12:19 138/84 09/10/18 11:46 97.7 F 91 16 155/105 94 Intake and Output 09/10/18 09/11/18 09/11/18 23:59 07:59 15:59 Intake Total 1240 / 2700 600 / 600 Output Total 1370 / 1920 350 / 350 Balance -130 / 780 250 / 250 Intake: Oral 1240 / 2700 600 / 600 Output: Urine 1370 / 1370 350 / 350 Other: Meal Dinner Percent of Meal Consumed 100% Weight 88.904 kg Patient Weight 09/11/18 23:59 Weight 88.904 kg - Exam Lungs: bilateral: normal Extremities: Present: normal Abdomen: Present: normal appearance, soft Incision: Present: normal, dry, intact Uterus: Present: normal, firm Fundal Height: 2 (U/2) - Labs Labs: Laboratory Results - last 24 hr 09/11/18 09/11/18 06:48 06:48 WBC 10.4 RBC 3.40 L Hgb 8.4 L Hct 27.0 L MCV 79.4 L MCH 24.7 L MCHC 31.1 L RDW 15.7 H Plt Count 211 MPV 11.8 Immature Gran % 0.6 Seg Neutrophils % 71.9 Lymphocytes % 19.8 Monocytes % 6.2 Eosinophils % 1.2 Basophils % 0.3 Neutrophils # 7.5 Lymphocytes # 2.1 Monocytes # 0.6 Eosinophils # 0.1 Basophils # 0.0 BUN 7 Creatinine 0.51 L Est GFR ( Amer) > 60 Est GFR (Non-Af Amer) > 60 BUN/Creatinine Ratio 14 Uric Acid 4.6 AST 18 ALT 11 Lactate Dehydrogenase 197
[2018-09-11] MEDS: Simethicone 80 MG TAB.CHEW PO PRN (12:04)
[2018-09-11 15:02] LABS: Basophils % 0.2 %; Eosinophils # 0.1 K/mcL (0.0-0.6); Eosinophils % 0.5 %; Hemoglobin 8.6 g/dL (11.5-15.4); Immature Granulocytes % 0.5 % (0-4); Lymphocytes # 1.6 K/mcL (0.6-4.6); Lymphocytes % 12.5 %; Mean Corpuscular HGB Conc 30.7 g/dL (31.6-35.5); Mean Corpuscular Hemoglobin 24.5 pg (28.0-33.3); Mean Corpuscular Volume 79.8 fL (83.0-100.0); Mean Platelet Volume 11.7 fL (9.4-12.4); Monocytes # 0.5 K/mcL (0.0-1.3); Monocytes % 4.3 %; Neutrophils # 10.2 K/mcL (1.6-8.9); Platelet Count 234 K/mcL (140-400); Red Blood Count 3.51 M/mcL (3.82-4.97); Red Cell Distribution Width 15.9 % (11.5-14.5)
[2018-09-12] MEDS: Prenatal Vit/FA 1 EACH TABLET PO SCH (07:50)
[2018-09-12] MEDS: *HR* OxyCODONE/APAP 5/325 TABLET PO PRN ×3 (07:51→20:09)
[2018-09-12] MEDS: Ibuprofen 600 MG TABLET PO PRN ×3 (07:51→20:09)
[2018-09-12] MEDS: NIFEdipine XL (24 HR) 30 MG TAB.ER.24 PO SCH (12:27)
[2018-09-12] MEDS ORDERED: Lidocaine/EPI 1:100k 1% 20 ML VIAL INFILT ONE (13:39)
[2018-09-12] MEDS ORDERED: Etonogestrel 68 MG IMPLANT IL ONE (13:39)
[2018-09-12] MEDS: Simethicone 80 MG TAB.CHEW PO PRN ×2 (14:27→20:09)
--- NOTE | 2018-09-12 15:30 | OB/GYN Progress Note ---
Date of Encounter: 09/12/18 Time of Encounter: 11:00 - Assessment and Plan (1) Elevated blood pressure affecting in second trimester, antepartum Current Visit: Yes Status: Acute 27yo s/p repeat low transverse delivery x4, laboring, SROM'd thick meconium. Now POD#2 1. Gestational HTN - 170/110s on presentation - given 2 doses of IV labetalol 10mg, nnormotensive until delivery - patient with elevated BP, was started on po labetalol and increased overnight POD#2 to 200mg - CHANGED ORDER: DC'd Labetalol and started Procardia 30mg XR daily in AM - LABS unchanged overnight: normal, denies si/sx of PreEclampsia - will see patient BP overnight with Procardia, likely DC to home tomorrow pending patient status - patient DID NOT receive IV [id number] 2. management - denies n/v/d - voiding independently - pain adequately controlled with po medication - CDI dressing, intact incision wihtout concern for cellulitis - contraception: NEXPLANON, eventually BPS but will have Nexplanon regardless - ambulating independently and without difficulty DISPO: Patient started on Procardia 30mg XR daily, DC'd labetalol as she is no longer and the role of labetalol is poor once delivery has occured. Will have patient continue on this regimen and follow up in the office in 1 week for BP check/incision check. MD MERCEDES (2) Status post repeat low transverse section Current Visit: Yes Status: Acute Subjective - Subjective Principal diagnosis: POD#2 from CS Interval history: Denies n/v/d, reports minimal vaginal bleeding and lochia. Pain controlled, passing flatus, no BM. Voiding and ambulating independently. Patient reports: appetite normal, voiding normally, pain well controlled, ambulating normally Harper: doing well Objective - Vital Signs Latest vital signs: Vital Signs Temp Pulse Resp BP Pulse Ox 09/12/18 14:43 98.2 F 90 14 138/88 97 09/12/18 11:25 151/98 09/12/18 09:24 149/89 09/12/18 07:30 98.6 F 99 12 140/95 97 09/12/18 04:48 133/88 09/11/18 23:55 142/103 09/11/18 22:50 98.5 F 100 16 144/96 98 09/11/18 20:30 98.7 F 95 16 154/99 97 09/11/18 16:23 98.0 F 96 14 139/93 96 Intake and Output 09/11/18 09/12/18 09/12/18 23:59 07:59 15:59 Intake Total 1120 / 1720 Output Total 2700 / 3050 400 / 1550 1150 / 1550 Balance -1580 / -1330 -400 / -1550 -1150 / -1550 Intake: Oral 1120 / 1720 Output: Urine 2700 / 3050 400 / 1550 1150 / 1550 Other: Meal Dinner Percent of Meal Consumed 50% Stool Size Small Stool Characteristics Normal for Patient Weight 85.774 kg Patient Weight 09/12/18 23:59 Weight 85.774 kg - Exam Extremities: Present: normal Abdomen: Present: normal appearance, soft, gravid Incision: Present: normal, dry, intact Uterus: Present: normal, firm
[2018-09-12] MEDS ORDERED: Lidocaine/EPI 1:100k 1% 30 ML VIAL ONE (15:39)
--- NOTE | 2018-09-12 16:09 | OB/GYN Procedure Note ---
OB-AIR POLLUTION ANALYST: Procedure - Diagnosis Date of procedure: 09/12/18 Pre-op diagnosis: Desires long acting reversible contraception Post-op diagnosis: same - Procedure Procedure: Nexplanon insertion Surgeon: Taylor Jacob Was there an printing assistant present: No Anesthesia provider: Taylor Jacob Anesthesia Type: Local Procedure Complications: None Disposition: no change Narrative: Patient desires Nexplanon for control and would like to have it placed prior to discharge. Examination: Informed consent was obtained and time out performed. Patient was placed in supine position with left arm in the appropriate position. Betadine was used to prep the arm in sterile fashion. 1% Lidocaine was used for anesthesia. The Nexplanon was inserted in the subcutaneous tissue to the appropriate length then the Nexplanon was released. Both myself and the patient can palpate the rakel without difficulty. Bandage and pressure dressing was applied. Patient tolerate the procedure well. Patient was instructed on wound care and is to follow up as needed. Patient educated on back up control for 7 days. Procedure: Correct patient, procedure, and site were verified and time out performed per policy. Therapeutic Injections: 3 mL of Lidocaine given at site of insertion by Dulce Jacob CNM
[2018-09-13] MEDS: *HR* OxyCODONE/APAP 5/325 TABLET PO PRN ×2 (01:49→06:37)
[2018-09-13] MEDS: Ibuprofen 600 MG TABLET PO PRN (06:36)
[2018-09-13] MEDS: NIFEdipine XL (24 HR) 30 MG TAB.ER.24 PO SCH (08:05)
[2018-09-13] MEDS: Prenatal Vit/FA 1 EACH TABLET PO SCH (08:06)
[2018-09-13 08:35] VITALS: BP 143/93
--- NOTE | 2018-09-13 09:09 | Discharge Summary ---
Date of Encounter: 09/13/18 Time of Encounter: 09:07 - Discharge Diagnosis (1) Status post repeat low transverse section Priority: Primary Status: Acute Comments: Continue routine postop care discharge home today follow up with Dr. Peacock in 2 weeks (2) Breast feeding status of mother Priority: Secondary Status: Acute Comments: support prn (3) anemia Priority: Secondary Status: Acute Comments: Continue ferrous sulfate bid (4) Gestational hypertension Priority: Secondary Status: Acute Comments: Continue Procardia 30mg XL daily Nurse visit Thursday for BP check Qualifiers: Trimester: third trimester Qualified Code(s): O13.3 - Gestational [pregnanc y-induced] hypertension without significant proteinuria, third trimester - Discharge Medications Prescriptions: New Breast Pump [BREAST PUMP] 1 each .ROUTE AD #1 each Docusate [Colace] 100 mg PO BID #30 capsule Ferrous Sulfate 325 mg PO BIDWM #60 tablet Ibuprofen [Motrin] 600 mg PO Q6HR PRN tablet PRN Reason: Cramping OxyCODONE/APAP 5/325 [Percocet 5/325 MG] 1 each PO Q6HR PRN 5 Days #20 tablet PRN Reason: Moderate pain 4-6 NIFEdipine XL (24 HR) [Procardia XL] 30 mg PO DAILY #30 tab.er.24 Continued Vit Calc,Iron,Folic [ Vitamins] 1 tab PO DAILY Discontinued Ibuprofen [Motrin] 800 mg PO Q8H PRN PRN Reason: Pain Home Medications: Vit Calc,Iron,Folic [ Vitamins] 1 tab PO DAILY 06/09/16 [History] Breast Pump [BREAST PUMP] 1 each .ROUTE AD #1 each 09/13/18 [Rx] Docusate [Colace] 100 mg PO BID #30 capsule 09/13/18 [Rx] Ferrous Sulfate 325 mg PO BIDWM #60 tablet 09/13/18 [Rx] Ibuprofen [Motrin] 600 mg PO Q6HR PRN tablet 09/13/18 [Rx] NIFEdipine XL (24 HR) [Procardia XL] 30 mg PO DAILY #30 tab.er.24 09/13/18 [Rx] OxyCODONE/APAP 5/325 [Percocet 5/325 MG] 1 each PO Q6HR PRN 5 Days #20 tablet 09/13/18 [Rx] Allergies/Adverse Reactions: Allergy/AdvReac Type Severity Reaction Status Date / Time No Known Allergies Allergy Verified 11/19/16 12:30 Data Procedures and tests throughout hospitalization: Laboratory Tests 09/09/18 09/09/18 09/09/18 14:00 14:00 14:00 WBC RBC Hgb Hct MCV MCH MCHC RDW Plt Count MPV Immature Gran % Seg Neutrophils % Lymphocytes % Monocytes % Eosinophils % Basophils % Neutrophils # Lymphocytes # Monocytes # Eosinophils # Basophils # BUN 4 L Creatinine 0.47 L Est GFR ( Amer) > 60 Est GFR (Non-Af Amer) > 60 BUN/Creatinine Ratio 9 Uric Acid 5.2 AST 11 L ALT 9 Lactate Dehydrogenase 159 Urine Creatinine Protein/Creatinin Ratio Urine Total Protein Urine Opiates Screen Ur Barbiturates Screen Ur Phencyclidine Scrn Ur Amphetamines Screen U Benzodiazepines Scrn Urine Cocaine Screen U Marijuana (THC) Screen Ur Drug Screen Interp T.pallidum Ab Interpret Negative Hep Bs Antigen Nonreactive HIV Ag/Ab Combo Qual Nonreactive Rubella IgG Antibody POSITIVE VZV IgG Antibody Positive Blood Type 09/09/18 09/09/18 09/09/18 14:00 14:26 14:26 WBC 11.9 H RBC 4.60 Hgb 11.2 L Hct 36.1 MCV 78.5 L MCH 24.3 L MCHC 31.0 L RDW 15.7 H Plt Count 229 MPV 12.1 Immature Gran % 0.4 Seg Neutrophils % 79.0 Lymphocytes % 13.5 Monocytes % 6.2 Eosinophils % 0.6 Basophils % 0.3 Neutrophils # 9.4 H Lymphocytes # 1.6 Monocytes # 0.7 Eosinophils # 0.1 Basophils # 0.0 BUN Creatinine Est GFR ( Amer) Est GFR (Non-Af Amer) BUN/Creatinine Ratio Uric Acid AST ALT Lactate Dehydrogenase Urine Creatinine 105 Protein/Creatinin Ratio 0.18 Urine Total Protein 19 H Urine Opiates Screen Negative Ur Barbiturates Screen Negative Ur Phencyclidine Scrn Negative Ur Amphetamines Screen Negative U Benzodiazepines Scrn Negative Urine Cocaine Screen Negative U Marijuana (THC) Screen Negative Ur Drug Screen Interp See Below T.pallidum Ab Interpret Hep Bs Antigen HIV Ag/Ab Combo Qual Rubella IgG Antibody VZV IgG Antibody Blood Type O POSITIVE 09/09/18 09/10/18 09/11/18 22:07 04:16 06:48 WBC 18.8 H D 16.8 H 10.4 RBC 4.01 3.77 L 3.40 L Hgb 9.8 L 9.1 L 8.4 L Hct 31.7 L 29.7 L 27.0 L MCV 79.1 L 78.8 L 79.4 L MCH 24.4 L 24.1 L 24.7 L MCHC 30.9 L 30.6 L 31.1 L RDW 15.5 H 15.6 H 15.7 H Plt Count 218 252 211 MPV 11.7 12.5 H 11.8 Immature Gran % 0.4 0.6 Seg Neutrophils % 85.8 71.9 Lymphocytes % 7.8 19.8 Monocytes % 5.7 6.2 Eosinophils % 0.1 1.2 Basophils % 0.2 0.3 Neutrophils # 14.4 H 7.5 Lymphocytes # 1.3 2.1 Monocytes # 1.0 0.6 Eosinophils # 0.0 0.1 Basophils # 0.0 0.0 BUN Creatinine Est GFR ( Amer) Est GFR (Non-Af Amer) BUN/Creatinine Ratio Uric Acid AST ALT Lactate Dehydrogenase Urine Creatinine Protein/Creatinin Ratio Urine Total Protein Urine Opiates Screen Ur Barbiturates Screen Ur Phencyclidine Scrn Ur Amphetamines Screen U Benzodiazepines Scrn Urine Cocaine Screen U Marijuana (THC) Screen Ur Drug Screen Interp T.pallidum Ab Interpret Hep Bs Antigen HIV Ag/Ab Combo Qual Rubella IgG Antibody VZV IgG Antibody Blood Type 09/11/18 09/11/18 06:48 14:34 WBC 12.4 H RBC 3.51 L Hgb 8.6 L Hct 28.0 L MCV 79.8 L MCH 24.5 L MCHC 30.7 L RDW 15.9 H Plt Count 234 MPV 11.7 Immature Gran % 0.5 Seg Neutrophils % 82.0 Lymphocytes % 12.5 Monocytes % 4.3 Eosinophils % 0.5 Basophils % 0.2 Neutrophils # 10.2 H Lymphocytes # 1.6 Monocytes # 0.5 Eosinophils # 0.1 Basophils # 0.0 BUN 7 Creatinine 0.51 L Est GFR ( Amer) > 60 Est GFR (Non-Af Amer) > 60 BUN/Creatinine Ratio 14 Uric Acid 4.6 AST 18 ALT 11 Lactate Dehydrogenase 197 Urine Creatinine Protein/Creatinin Ratio Urine Total Protein Urine Opiates Screen Ur Barbiturates Screen Ur Phencyclidine Scrn Ur Amphetamines Screen U Benzodiazepines Scrn Urine Cocaine Screen U Marijuana (THC) Screen Ur Drug Screen Interp T.pallidum Ab Interpret Hep Bs Antigen HIV Ag/Ab Combo Qual Rubella IgG Antibody VZV IgG Antibody Blood Type - Impressions ITS Impressions Obstetrics Ultrasound 09/09/18 15:00 IMPRESSION: 1. Single live intrauterine with gestational age of 38 weeks 2 days by current sonographic biometry (estimated due date 09/21/2018). Estimated weight 3658 grams. 2. Oligohydramnios with an amniotic fluid index of 3.5. Critical results were called by Dr. Rice to Dr. Peacock on 09/09/2018 at 4:40 p.m. 3. Urinary bladder distention. Consider posterior through valves given male sex and oligohydramnios, although no additional sonographic findings of this diagnosis (keyhole sign, hydronephrosis) are seen. D/ / Billy Rice MD / Billy Rice MD Interpreting Provider: Billy Rice MD Date of admission: 09/09/18 17:37 Primary care physician: PCP NONE Consults: 09/10/18 01:38 Consult to Product Support Analyst (W&C) [CONS] Routine Reason For Exam: Reason for SW Consult: lack of PNC, NONE AT ALL. Discharging clinician: Bárbara Hodge Anticipated date of discharge: 09/13/18 - Patient Status Disposition: Home, Self-Care Condition: Good Functional capacity at discharge: independent ambulation - Discharge Instructions Follow Up With: NONE,PCP [Primary Care Provider] - Sarah Peacock MD [Partnered Physician] - - Diet and Activity Activity: increase activity as tolerated Diet: regular diet Hospital Course Procedures: OARRS report pulled and reviewed by Dr. Meza Reason for admission: section Delivery: section Episiotomy: none Laceration: none Other procedures: none complications: none Discharge diagnosis: IUP at term delivered baby: male (breast feeding) Time Attestation: Total time spent providing and/or coordinating discharge services: Time Spent: Less than 30 minutes - VTE Reasons for not Prescribing Prophylaxis: Treatment not Indicated - Low risk for VTE Documentation of Mechanical Device: Intermittent pneumatic compression device Exam - Constitutional Vitals: Temp Pulse Resp BP Pulse Ox 98.2 F 68 14 143/93 98 09/13/18 08:34 09/13/18 08:34 09/13/18 08:34 09/13/18 08:34 09/13/18 08:34 General appearance IM: A&O X 3, pleasant, answers questions appropriately - Respiratory Respiratory exam: Present: CTAB - Cardiovascular Cardiovascular exam IM: Present: RRR, +S1, +S2 - GI/Abdominal GI/Abdominal exam IM: normal bowel sounds Incision: normal, dry, dressed (AUDRA) - Uterine Tone: Firm Uterus Position: 2 Fingers Below Umbilicus, Midline - Extremities Exam Extremities exam IM: Present: full ROM - Neurological Exam Neurological exam: alert, oriented X3, reflexes normal
== END 2018-09-13 11:54 | disposition home or self-care (01) | DRG 787 ==
LOC: 1NENULAB → 1NENUOBS 22:20
PROVIDERS: ADMIT Advanced Practice Midwife; ATTEND Advanced Practice Midwife

== ENCOUNTER 2019-10-10 09:40 | Observation (INO) ==
[2019-10-10 10:17] LABS: Basophils % 0.4 %; Eosinophils # 0.1 K/mcL (0.0-0.6); Eosinophils % 0.7 %; Hemoglobin 14.3 g/dL (11.5-15.4); Immature Granulocytes % 0.4 % (0-4); Lymphocytes # 1.8 K/mcL (0.6-4.6); Lymphocytes % 16.1 %; Mean Corpuscular HGB Conc 32.5 g/dL (31.6-35.5); Mean Corpuscular Hemoglobin 29.4 pg (28.0-33.3); Mean Corpuscular Volume 90.5 fL (83.0-100.0); Mean Platelet Volume 11.6 fL (9.4-12.4); Monocytes # 0.5 K/mcL (0.0-1.3); Neutrophils # 8.8 K/mcL (1.6-8.9); Platelet Count 249 K/mcL (140-400); Red Blood Count 4.86 M/mcL (3.82-4.97); Red Cell Distribution Width 12.8 % (11.5-14.5); Segmented Neutrophils % 78.4 %; White Blood Count 11.2 K/mcL (4.3-11.1)
[2019-10-10 10:25] LABS: INR 1.1; Prothrombin Time 12.6 Seconds (9.4-12.1)
[2019-10-10 10:27] LABS: Activated Partial Thrombo Time 31.4 Seconds (26.0-36.0)
[2019-10-10] MEDS ORDERED: Isovue-370 500 ML BOTTLE IVP ONE (10:34)
[2019-10-10 10:41] LABS: Alanine Aminotransferase 20 Units/L (7-52); Albumin/Globulin Ratio 1.5 (1.1-2.2); Alkaline Phosphatase 91 Units/L (34-104); Aspartate Amino Transferase 15 Units/L (13-39); BUN/Creatinine Ratio 14 (6-26); Bilirubin,Direct 0.1 mg/dL (0.0-0.2); Bilirubin,Indirect 0.7 mg/dL (0.0-1.0); Bilirubin,Total 0.8 mg/dL (0.3-1.0); Blood Urea Nitrogen 9 mg/dL (6-20); Calcium 8.9 mg/dL (8.6-10.3); Carbon Dioxide 23 mEq/L (23-29); Chloride 108 mEq/L (98-107); Globulin 2.7 g/dL (2.4-3.5); Glucose 106 mg/dL (70-105); Osmolality,Calculated 287 (280-300); Sodium 139 mEq/L (136-145); Total Protein 6.7 g/dL (6.4-8.9); Troponin I < 0.03 ng/mL (< 0.04); eGFR For African Americans > 60 (> 60); eGFR For Non-African Americans > 60 (> 60)
[2019-10-10 12:19] LABS: Bilirubin,Urine Negative (Negative); Blood,Urine Negative (Negative); Clarity,Urine Clear (Clear); Color,Urine Light-Yellow (Yellow); Glucose,Urine (UA) Normal (Normal); Ketones,Urine Negative (Negative); Leukocyte Esterase,Urine Negative (Negative); Nitrite,Urine Negative (Negative); Protein,Urine Trace mg/dL (Neg-Trace); Specific Gravity,Urine 1.017 (1.010-1.025); Urobilinogen,Urine Normal (Normal)
[2019-10-10] MEDS ORDERED: Furosemide 40 MG/4 ML VIAL IVP ONE (12:50)
[2019-10-10] MEDS ORDERED: *HR* Labetalol 20 MG/4 ML SYRINGE IVP ONE (14:30)
[2019-10-10] MEDS ORDERED: Naloxone 0.4 MG/ML INJ IVP PRN (14:36)
[2019-10-10] MEDS: cefTRIAXone 1,000 MG in Water for inj. (sterile) 10 ML IVP SCH (14:54)
[2019-10-10] MEDS: NIFEdipine XL (24 HR) 30 MG TAB.ER.24 PO SCH (14:55)
[2019-10-10] MEDS ORDERED: Azithromycin 500 MG in 0.9 % Sodium Chloride 250 ML IVPB SCH (15:00)
[2019-10-10] MEDS ORDERED: *HR* Metoprolol 5 MG/5 ML VIAL IVP PRN (15:51)
[2019-10-10 16:26] LABS: Thyroid Stimulating Hormone 0.953 mcIU/mL (0.340-5.600)
[2019-10-10] MEDS: *HR* Heparin 5,000 UNIT/ML VIAL SQ SCH (17:36)
[2019-10-10] MEDS: *HR* Labetalol 20 MG/4 ML SYRINGE IVP ONE ×2 (17:36→18:00)
[2019-10-10] MEDS ORDERED: *HR* Metoprolol 5 MG/5 ML VIAL IVP ONE (21:14)
[2019-10-11] MEDS: *HR* Heparin 5,000 UNIT/ML VIAL SQ SCH (04:50)
[2019-10-11 04:59] LABS: Basophils # 0.1 K/mcL (0.0-0.2); Basophils % 0.6 %; Eosinophils # 0.1 K/mcL (0.0-0.6); Eosinophils % 1.5 %; Hematocrit 44.6 % (35.3-44.9); Hemoglobin 14.6 g/dL (11.5-15.4); Immature Granulocytes % 0.2 % (0-4); Lymphocytes # 2.4 K/mcL (0.6-4.6); Lymphocytes % 26.7 %; Mean Corpuscular HGB Conc 32.7 g/dL (31.6-35.5); Mean Corpuscular Hemoglobin 29.3 pg (28.0-33.3); Mean Corpuscular Volume 89.4 fL (83.0-100.0); Mean Platelet Volume 11.2 fL (9.4-12.4); Monocytes # 0.6 K/mcL (0.0-1.3); Monocytes % 6.3 %; Neutrophils # 5.7 K/mcL (1.6-8.9); Platelet Count 261 K/mcL (140-400); Red Blood Count 4.99 M/mcL (3.82-4.97); Red Cell Distribution Width 12.7 % (11.5-14.5); Segmented Neutrophils % 64.7 %; White Blood Count 8.9 K/mcL (4.3-11.1)
[2019-10-11 05:18] LABS: BUN/Creatinine Ratio 17 (6-26); Blood Urea Nitrogen 12 mg/dL (6-20); Calcium 9.1 mg/dL (8.6-10.3); Carbon Dioxide 24 mEq/L (23-29); Chloride 107 mEq/L (98-107); Glucose 103 mg/dL (70-105); Osmolality,Calculated 288 (280-300); Potassium 3.7 mEq/L (3.5-5.1); Sodium 139 mEq/L (136-145); eGFR For African Americans > 60 (> 60); eGFR For Non-African Americans > 60 (> 60)
[2019-10-11] MEDS: cefTRIAXone 1,000 MG in Water for inj. (sterile) 10 ML IVP SCH (07:52)
[2019-10-11] MEDS: NIFEdipine XL (24 HR) 30 MG TAB.ER.24 PO SCH (07:52)
[2019-10-11 08:19] VITALS: BP 131/95
[2019-10-11] MEDS ORDERED: Furosemide 40 MG/4 ML VIAL IVP SCH (09:00)
[2019-10-11] MEDS ORDERED: Metoprolol XL (24 HR) Succ 25 MG TAB.ER.24H PO SCH (10:00)
[2019-10-12 16:42] LABS: Acinetobacter baumannii by PCR Not Detected (Not Detect); Candida albicans by PCR Not Detected (Not Detect); Candida glabrata by PCR Not Detected (Not Detect); Candida krusei by PCR Not Detected (Not Detect); Candida parapsilosis by PCR Not Detected (Not Detect); Candida tropicalis by PCR Not Detected (Not Detect); Enterobacter cloacae Cmplx PCR Not Detected (Not Detect); Enterobacteriaceae by PCR Not Detected (Not Detect); Enterococcus by PCR Not Detected (Not Detect); Escherichia coli by PCR Not Detected (Not Detect); Klebsiella oxytoca by PCR Not Detected (Not Detect); Klebsiella pneumoniae by PCR Not Detected (Not Detect); Proteus by PCR Not Detected (Not Detect); Pseudomonas aeruginosa by PCR Not Detected (Not Detect); Serratia marcescens by PCR Not Detected (Not Detect); Staphylococcus aureus by PCR Not Detected (Not Detect); Staphylococcus by PCR Not Detected (Not Detect); Streptococcus agalactiae(B)PCR Not Detected (Not Detect); Streptococcus by PCR Not Detected (Not Detect); Streptococcus pneumoniae PCR Not Detected (Not Detect); Streptococcus pyogenes (A) PCR Not Detected (Not Detect)
== END 2019-10-11 11:30 | disposition home or self-care (01) ==
LOC: 2NENU 09:40 → EMEROOARM 09:40 → 2NENU 13:43
PROVIDERS: ADMIT Pharmacist; ATTEND Pharmacist